=== PATIENT | female | born 1985 | race Caucasian/White ===

== ENCOUNTER 2024-03-01 22:25 | Emergency (ER) | payer OTHER ==
[~2024-03-01] VITALS: Ht 167.6 cm; Wt 67.0 kg
[2024-03-01 23:49] LABS: HEMATOCRIT 38.1 % (36.0-47.0); HEMOGLOBIN 12.7 g/dl (12.0-15.5); MEAN CORPUSCULAR HEMOGLOBIN 28.5 pg (27.0-33.0); MEAN CORPUSCULAR HGB CONC 33.3 g/dl (32.0-36.5); MEAN CORPUSCULAR VOLUME 85.4 fl (80.0-96.0); PLATELET COUNT, AUTOMATED 275 10^3/uL (150-450); RED BLOOD COUNT 4.46 10^6/uL (4.00-5.40); WHITE BLOOD COUNT 10.1 10^3/uL (4.0-10.0)
[2024-03-01 23:58] LABS: BARBITURATES URINE NEGATIVE (NEGATIVE); BENZODIAZEPINES URINE NEGATIVE (NEGATIVE); CANNABINOIDS URINE NEGATIVE (NEGATIVE); PHENCYCLIDINE URINE NEGATIVE (NEGATIVE)
[2024-03-02 00:01] LABS: AMPHETAMINES LEVEL URINE POSITIVE (NEGATIVE); COCAINE METABOLITE URINE POSITIVE (NEGATIVE); METHADONE URINE POSITIVE (NEGATIVE); OPIATES URINE POSITIVE (NEGATIVE)
[2024-03-02 00:02] LABS: ETHYL ALCOHOL (ETHANOL) 0.005 % (0.000-0.010)
[2024-03-02 00:03] LABS: ALBUMIN 3.9 G/DL (3.2-5.2); ALKALINE PHOSPHATASE 76 U/L (35-104); ALT/SGPT 10 U/L (7.0-40); AST/SGOT 14 U/L (<34); BILIRUBIN,DIRECT 0.2 MG/DL (<0.4); BILIRUBIN,TOTAL 0.5 MG/DL (0.3-1.2); BLOOD UREA NITROGEN 17 MG/DL (9-23); CALCIUM LEVEL 9.5 MG/DL (8.5-10.1); CARBON DIOXIDE LEVEL 26 MMOL/L (20-31); CHLORIDE LEVEL 107 MMOL/L (98-107); GLOMERULAR FILTRATION RATE > 60.0 (>60); GLUCOSE, FASTING 89 MG/DL (60-100); POTASSIUM SERUM 3.7 MMOL/L (3.5-5.1); SALICYLATE LEVEL < 3.0 MG/DL (<30); SODIUM LEVEL 143 MMOL/L (136-145); TOTAL PROTEIN 7.6 G/DL (5.7-8.2)
[2024-03-02 00:05] LABS: THYROID STIMULATING HORMONE 4.793 uIU/ML (0.55-4.78)
[2024-03-02 00:08] LABS: HCG, SERUM QUALITATIVE NEGATIVE (NEGATIVE)
[2024-03-02] MEDS ORDERED: MED REC CURRENTLY UNOBTAINABLE XX SCH (05:45)
[2024-03-02 11:57] VITALS: BP 119/75; TEMP 98.3; O2SAT 99
== END 2024-03-02 12:03 | disposition home or self-care (01) ==
LOC: M ED 22:25
DX: F32.A Depression, unspecified (principal); F19.10 Other psychoactive substance abuse, uncomplicated; Z88.6 Allergy status to analgesic agent

== ENCOUNTER 2024-04-17 20:03 | Emergency (ER) | payer OTHER ==
[~2024-04-17] VITALS: Ht 170.2 cm; Wt 86.3 kg
[2024-04-17 20:05] VITALS: BP 139/82; TEMP 97.3; O2SAT 100
[2024-04-18] MEDS ORDERED: ACETAMINOPHEN 500 MG TAB PO ONE (01:40)
== END 2024-04-18 02:33 | disposition left against medical advice (07) ==
LOC: M ED 20:03
DX: R51.9 Headache, unspecified (principal); E03.9 Hypothyroidism, unspecified; F19.11 Other psychoactive substance abuse, in remission; Z88.6 Allergy status to analgesic agent; Z53.9 Procedure and treatment not carried out, unspecified reason

== ENCOUNTER 2024-04-27 16:04 | Emergency (ER) | payer OTHER ==
[~2024-04-27] VITALS: Ht 167.6 cm; Wt 83.4 kg
[2024-04-27 16:13] VITALS: BP 131/84; TEMP 97.4; O2SAT 100
== END 2024-04-27 19:23 | disposition left against medical advice (07) ==
LOC: M ED 16:04
DX: Z53.21 Procedure and treatment not carried out due to patient leaving prior to being seen by health care provider (principal)